=== PATIENT | female | born 1950 | race Caucasian/White ===

== ENCOUNTER 2019-12-30 14:07 | Emergency (ER) | payer MEDICARE, SELFPAY ==
--- NOTE | ~2019-12-30 | XR_ITS ---
XR abdomen/kub 1V DATE: 12/30/2019 15:31 INDICATION: Generalized abdominal pain. History of perforated small intestine into thousand 14. TECHNIQUE: AP projection, 2 views COMPARISON: None FINDINGS: Status post right total hip replacement. Bowel sutures overlie the right lower quadrant. There is a loop of nondilated gas containing small be wel overlying the left midabdomen. No bowel obstruction is evident. The psoas shadows are intact. No visceromegaly is detected. A couple of rounded calcifications overlying the right paraspinal area at the L3-4 level, likely calc ified phleboliths. Several calcified pelvic phleboliths are noted. The lung bases are clear. Normal heart size. IMPRESSION: Postoperative abdomen; nonspecific bowel gas pattern, without apparent obstruction Reviewed, dictated and finalized at [facility]. Reviewed, dictated and finalized at [facility]. IMPRESSION: Postoperative abdomen; nonspecific bowel gas pattern, without appar ent obstruction
[2019-12-30 14:25] VITALS: BP 132/84; PULSE 136; RESP 18; TEMP 36.6; O2SAT 95
--- NOTE | 2019-12-30 15:03 | ED.GENADULT ---
HPI - General Adult General Chief complaint: Nausea/Vomiting/Diarrhea Stated complaint: nausea/ fever Time Seen by Provider: 12/30/19 15:03 Source: patient and RN notes reviewed Mode of arrival: ambulatory Limitations: no limitations History of Present Illness HPI narrative: 69-year-old female presents with complaints of headache (not the worst headache of her life), low-grade fever, diffused lower abdomen pain (started on 12/29/19 after eating zucchini brownies) with nausea and vomiting (started on 12/29/2019) for 1 day. Abdominal pain, cramping, and bloating increases with eating and drinking. Tylenol with some relief. No significant pelvic pain. No vaginal discharge. No concerns for a STD. No high fever, highest was 99.0 Fahrenheit, orally without chills. Nausea and vomiting (4 episodes since last night and this morning) without blood or diarrhea. Last episode was this morning at 8:30am. No flank pain. Exacerbating factors consist of palpation to lower quadrant and eating and drinking. Denies dysuria, hematuria, and vaginal bleeding. No blood in stool or constipation. Last BM was 12/30/19 (am) and normal. No cough or dyspnea. Denies chest pain, back pain, and dizziness. Urine out put with in normal limits. [place] says her live-in granddaughter had similar GI symptoms on 12/28/2019. The patient reports she have not been diagnosed with COVID-19. The patient reports she is not waiting for the results of a COVID-19 lab test. The patient reports she do not have fever, chills, weakness, fatigue, or myalgia. The patient reports she do not have a new or worsening cough or shortness of breath. Denies chest pain. The patient reports she do not have any rhinorrhea, congestion, or sore throat. Denies recent traveling. Denies concerns for COVID-19 or exposures been home with limited outdoor exposure except for essential household needs, work, and return home. At this time, patient is not suspected of having COVID-19. Some parts of this dictation were generated by voice recognition software and may contain typographical and/or grammatical inaccuracies. Related Data Home Medications Medication Instructions Recorded Confirmed aspirin [Aspirin Low Dose] 81 mg PO DAILY 12/30/19 12/30/19 cetirizine [Zyrtec] 5 mg PO DAILY 12/30/19 12/30/19 cyanocobalamin (vitamin B-12) 1,000 mcg SUBCUT MONTHLY 12/30/19 12/30/19 leflunomide 20 mg PO DAILY 12/30/19 12/30/19 levothyroxine 175 mcg PO DAILY 12/30/19 12/30/19 peg 400-propylene glycol (PF) 1 drp LEFTEYE 12-24XD PRN 12/30/19 12/30/19 [Systane (PF)] Allergies Allergy/AdvReac Type Severity Reaction Status Date / Time Sulfa (Sulfonamide Allergy Intermediate TONGUE Verified 12/30/19 14:28 Antibiotics) SWELLS Penicillins Allergy Mild RASH Verified 12/30/19 14:28 Review of Systems Review of Systems: Narrative: CONSTITUTIONAL: Denies fever, chills, sweats. EYES: Denies visual changes, redness, discharge. ENT: Denies rhinorrhea, congestion, sore throat, otalgia. CARDIOVASCULAR: Denies chest pain, palpitations, edema. RESPIRATORY: Denies dyspnea, wheezing, cough. GASTROINTESTINAL: Complains of abdominal pain, nausea, vomiting. Denies diarrhea. GENITOURINARY: Denies dysuria, hematuria, abnormal discharge. SKIN: Denies rash or itching. MUSCULOSKELETAL: Denies acute back pain, joint pain, or myalgia. NEUROLOGIC: Denies numbness or focal weakness. Complains of headache. PSYCHIATRIC: Denies anxiety or depression. All other systems reviewed are negative, except as documented in HPI and below. [facility] Past Medical History Medical History Alopecia Back pain with history of spinal surgery Carpal tunnel syndrome of right wrist delivery delivered NIKOLAI (hard of hearing) Hx of migraines Hypothyroidism Menopause Perforated small intestine 2009 Pulmonary embolism After right hip surgery Rheumatoid arthritis Sinusitis
[2019-12-30] MEDS: ONDANSETRON HCL ODT 4 MG TABLET PO (15:23)
--- NOTE | 2019-12-30 15:40 | PC.NURSE ---
pt. denies nausea after zofran and fluid challenge with Sprite.
--- NOTE | 2019-12-30 17:03 | PC.NURSE ---
NO UC ORDERED PER VIVIAN
== END 2019-12-30 15:55 | disposition home or self-care (01) ==
PROVIDERS: Emergency Provider Nurse Practitioner Family; PCP Family Medicine
DX: K52.9 Noninfective gastroenteritis and colitis, unspecified (principal); E03.9 Hypothyroidism, unspecified; Z86.711 Personal history of pulmonary embolism; M06.9 Rheumatoid arthritis, unspecified; L65.9 Nonscarring hair loss, unspecified; Z79.82 Long term (current) use of aspirin
CPT/HCPCS: 74018; 81003; 99203; A9270; G0463

== ENCOUNTER 2020-06-25 12:56 | Emergency (ER) | payer MEDICARE, SELFPAY ==
--- NOTE | ~2020-06-25 | XR_ITS ---
XR foot LT min 3V 06/25/2020 13:39 Indication: Left foot pain after injury Procedure: 4 views left foot Comparison: No prior studies for comparison. Findings: There is an oblique extra-articular displaced fifth metatarsal fracture. No other fractures identified. Mild soft tissue swelling. No foreign bodies. Lisfranc joint intact. Moderate osteoarthr itis first MTP joint. Impression: 1: Oblique mildly displaced extra-articular fracture left fifth metatarsal shaft. Reviewed, dictated and finalized at location [facility]. HOOKER Impression: 1: Oblique mildly displaced extra-articular fracture left fifth metatarsal tye coelho
[2020-06-25 13:05] VITALS: BP 124/78; PULSE 86; RESP 20; TEMP 36.2; O2SAT 97
--- NOTE | 2020-06-25 13:32 | ED.GENADULT ---
HPI - General Adult General Chief complaint: Extremity Injury, Lower Stated complaint: Extremity Injury, Lower Source: patient Mode of arrival: ambulatory Limitations: no limitations History of Present Illness HPI narrative: Patient presents for evaluation of left foot pain. One week ago she was walking out of her house into her garage when she rollerd (her) left foot . She did not actually fall but did feel pain in the lateral aspect of the left foot. She tried to limit ambulation and elevate the affected extremity for 3 days. During that time she had no pain in the left foot. Over the course the last 24 to 48 hours she is noted pain in lateral and plantar aspect of left foot. States pain is 6/10 in severity. She has an underlying history of rheumatoid arthritis and is under the care of rheumatology. She states bruising to left foot is improving. Due to duration of time for which she has experienced her symptoms, she elected to come in for further evaluation. Related Data Home Medications Medication Instructions Recorded Confirmed aspirin [Aspirin Low Dose] 81 mg PO DAILY 12/30/19 06/25/20 cyanocobalamin (vitamin B-12) 1,000 mcg SUBCUT MONTHLY 12/30/19 06/25/20 leflunomide 20 mg PO DAILY 12/30/19 06/25/20 levothyroxine 175 mcg PO DAILY 12/30/19 06/25/20 lovastatin 10 mg PO DAILY 06/25/20 06/25/20 metoprolol succinate 25 mg PO DAILY 06/25/20 06/25/20 Allergies Allergy/AdvReac Type Severity Reaction Status Date / Time Sulfa (Sulfonamide Allergy Intermediate TONGUE Verified 06/25/20 13:26 Antibiotics) SWELLS Penicillins Allergy Mild RASH Verified 06/25/20 13:26 Review of Systems Review of Systems: Narrative: CONSTITUTIONAL: Denies fever, chills, or sweats. EYES: Denies visual changes, redness, or discharge. ENT: Denies rhinorrhea, congestion, sore throat, or otalgia. CARDIOVASCULAR: Denies chest pain, palpitations, or edema. RESPIRATORY: Denies cough or dyspnea. GASTROINTESTINAL: Denies abdominal pain, nausea, vomiting, or diarrhea. GENITOURINARY: Denies dysuria or hematuria. SKIN: Denies rash or itching. Reports bruising to left foot MUSCULOSKELETAL: Denies back pain. Reports left foot pain NEUROLOGIC: Denies headache, numbness, dizziness, or weakness. PSYCHIATRIC: Denies anxiety or depression. [facility] Past Medical History Medical History (Updated 06/25/20 @ 14:20 by HARDIK Avila, ) Alopecia Back pain with history of spinal surgery Carpal tunnel syndrome of right wrist delivery delivered AGDAAGUX (hard of hearing) Hx of migraines Hypothyroidism Menopause Perforated small intestine 2010 Pulmonary embolism After right hip surgery Rheumatoid arthritis Sinusitis Surgical History Surgical History H/O section X1 History of carpal tunnel surgery Left wrist History of hip surgery Right History of tubal ligation History of uterine suspension procedure Family History Family History Father Hypertension Atrial fibrillation Mother , Blood clot Alzheimers disease Social History Social History Smoking status: Never smoker Tobacco type: cigarettes Second hand tobacco smoke exposure: No Alcohol intake: current Substance use: never Substance use type: does not use Gender identity (if verbalized by the patient): Female Exam Narrative: Exam Narrative: GENERAL: Well-appearing, well-nourished, and in no acute distress. HEAD: Normocephalic, atraumatic. EYES: PERRLA and EOMI. ENT: Nares clear, no rhinorrhea or epistaxis. Mucous membranes moist. Oropharynx without tonsillar hypertrophy exudate or other lesions. Bilateral TMs pearly billingsley nonbulging NECK: Supple. No adenopathy or masses. No carotid bruits or JVD CHEST: Clear to auscultation. No respiratory distress. No wh
--- NOTE | 2020-06-25 13:56 | PC.NURSE ---
PT DECLINED WHEELCHAIR TO RADIOLOGY AND ICE FOR COMFORT
--- NOTE | 2020-06-25 14:21 | PC.NURSE ---
PT IS CALLING WHOM IS GOING TO BRING CRUTCHES FROM HOME FOR PT TO USE. [facility].
== END 2020-06-25 14:56 | disposition home or self-care (01) ==
PROVIDERS: Emergency Provider Nurse Practitioner; PCP Family Medicine
DX: S92.352A Displaced fracture of fifth metatarsal bone, left foot, initial encounter for closed fracture (principal); X50.9XXA Other and unspecified overexertion or strenuous movements or postures, initial encounter; L65.9 Nonscarring hair loss, unspecified; E03.9 Hypothyroidism, unspecified; Z86.711 Personal history of pulmonary embolism; M06.9 Rheumatoid arthritis, unspecified
CPT/HCPCS: 29515; 73630; 99214; G0463

== ENCOUNTER 2023-09-22 14:27 | Emergency (ER) | payer MEDICARE, SELFPAY ==
--- NOTE | ~2023-09-22 | XR_ITS ---
EXAMINATION: XR foot LT min 3V DATE: 09/22/2023 14:52 INDICATION: Left foot inversion injury and pain. TECHNIQUE: 4 views of left foot were obtained. COMPARISON: None. FINDINGS: There is an old healed fracture of fifth metatarsal. There is a nondisplaced spiral fractur e of diaphysis of fifth metatarsal. 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 There is an enthesophyte at plantar aspect of calcaneal tuberosity. IMPRESSION: 1. Nondisplaced spiral fracture of diaphysis of fifth metatarsal. Reviewed, dictated and finalized at location E.
[2023-09-22 14:37] VITALS: BP 154/80; PULSE 102; RESP 18; TEMP 36.9; O2SAT 97
--- NOTE | 2023-09-22 15:00 | ED.LOWEXIN ---
HPI - Extremity Injury (Lower) General Chief Complaint: Extremity Injury, Lower Stated Complaint: Left Foot Injury History of Present Illness HPI Narrative: PATIENT PRESENTS FOR EVALUATION OF LEFT TOE INJURY PATIENT HAS HX OF FX TOE LEFT FOOT NO DEFORMITY NO BRUISING SLIGHT SWELLING NO OPEN AREA NOTED Related Data Home Medications Medication Instructions Recorded Confirmed aspirin 81 mg tablet,delayed 81 mg PO DAILY 12/30/19 09/22/23 release (Danii Low Dose Aspirin) cyanocobalamin (vitamin B-12) 1,000 mcg subcut MONTHLY 12/30/19 09/22/23 1,000 mcg/mL injection solution leflunomide 20 mg tablet 20 mg PO DAILY 12/30/19 09/22/23 metoprolol succinate 25 mg 25 mg PO DAILY 06/25/20 09/22/23 tablet,extended release 24 hr cetirizine 10 mg capsule (Zyrtec) 10 mg PO DAILY 01/01/22 09/22/23 cholecalciferol (vitamin D3) 250 250 mcg PO WEEKLY 01/01/22 09/22/23 mcg (10,000 unit) capsule clobetasol 0.05 % topical cream 1 applic topical DAILY 01/01/22 infliximab 100 mg intravenous IV 01/01/22 solution (Remicade) levothyroxine 125 mcg capsule 125 mcg PO DAILY 01/01/22 09/22/23 propylene glycol 0.6 % eye drops 1 drp EACH EYE DAILY 01/01/22 09/22/23 (Systane Complete) rosuvastatin 10 mg tablet 10 mg PO DAILY 01/01/22 09/22/23 montelukast 10 mg tablet 10 mg PO DAILY 09/22/23 09/22/23 (Singulair) Allergies Allergy/AdvReac Type Severity Reaction Status Date / Time Sulfa (Sulfonamide Allergy Intermediate TONGUE Verified 09/22/23 14:50 Antibiotics) SWELLS Penicillins Allergy Mild RASH Verified 09/22/23 14:50 Review of Systems Review of Systems: CONSTITUTIONAL: DENIES FEVER, CHILLS, OR SWEATS. EYES: DENIES VISUAL CHANGES, REDNESS, OR DISCHARGE. ENT: DENIES RHINORRHEA, CONGESTION, SORE THROAT, OR OTALGIA. CARDIOVASCULAR: DENIES CHEST PAIN, PALPITATIONS, OR EDEMA. RESPIRATORY: DENIES COUGH OR DYSPNEA. GASTROINTESTINAL: DENIES ABDOMINAL PAIN, NAUSEA, VOMITING, OR DIARRHEA. GENITOURINARY: DENIES DYSURIA OR HEMATURIA. SKIN: DENIES RASH OR ITCHING. MUSCULOSKELETAL: DENIES BACK PAIN, JOINT PAIN, OR MYALGIA. NEUROLOGIC: DENIES HEADACHE, NUMBNESS, OR WEAKNESS. PSYCHIATRIC: DENIES ANXIETY OR DEPRESSION. [facility] Past Medical History Medical History (Updated 09/22/23 @ 15:04 by HARDIK Tilley) Alopecia Back pain with history of spinal surgery Carpal tunnel syndrome of right wrist delivery delivered Encounter for Papanicolaou smear for cervical cancer screening TLINGIT & HAIDA (hard of hearing) Hx of migraines Hypothyroidism Menopause Perforated small intestine 2010 Pulmonary embolism After right hip surgery Rheumatoid arthritis Sinusitis Surgical History Surgical History H/O section X1 History of carpal tunnel surgery Left wrist History of hip surgery Right History of tubal ligation History of uterine suspension procedure Family History Family History Father Hypertension Atrial fibrillation Mother , Blood clot Alzheimers disease Social History Social History (Updated 01/01/22 @ 09:44 by Mariah Casey Luli) Smoking status: Never smoker Tobacco type: cigarettes Second hand tobacco smoke exposure: No Alcohol intake: current Drinks per week: 2 Alcohol use details: Occasional Substance use: never Substance use type: does not use Living arrangements: other Additional living arrangements comments: Occupation/Education: retired Gender identity (if verbalized by the patient): Female Sexual Orientation (if Verbalized by the Patient): Straight or Heterosexual Comments AT TIME OF SIGNATURE, AGREE WITH NURSING PAST MEDICAL, SURGICAL, SOCIAL AND FAMILY HISTORY. THERE IS NO RELEVANT FAMILY HISTORY PERTINENT TO THE PRESENTING COMPLAINT Exam Narrative: GENERAL: WELL-APPEARING, WELL-NOURISHED, AND IN NO ACUTE DISTRESS. HEAD:
== END 2023-09-22 15:08 | disposition home or self-care (01) ==
PROVIDERS: Emergency Provider Nurse Practitioner Family; PCP Family Medicine
DX: S92.355A Nondisplaced fracture of fifth metatarsal bone, left foot, initial encounter for closed fracture (principal); S90.122A Contusion of left lesser toe(s) without damage to nail, initial encounter; X58.XXXA Exposure to other specified factors, initial encounter; E03.9 Hypothyroidism, unspecified; Z86.711 Personal history of pulmonary embolism; M06.9 Rheumatoid arthritis, unspecified; L65.9 Nonscarring hair loss, unspecified
CPT/HCPCS: 73630; 99213; G0463